=== PATIENT | female | born 1985 | race African-American/Black ===

== ENCOUNTER 2017-07-15 20:06 | Inpatient (IN) | payer MEDICARE, OTHER ==
[2017-07-15] MEDS ORDERED: LACTATED RINGER'S 1,000 ML IV (20:21)
[2017-07-15] MEDS ORDERED: OXYTOCIN 30 UNITS/LR 500 ML IV (20:30)
[2017-07-15] MEDS ORDERED: IBUPROFEN 600 MG TAB PO (20:30)
[2017-07-15] MEDS ORDERED: CARBOPROST 250 MCG INJ IM (20:30)
[2017-07-15] MEDS ORDERED: LIDOCAINE 1% (MPF) 30 ML INJ INJ (20:30)
[2017-07-15] MEDS ORDERED: MISOPROSTOL 200 MCG TAB PR (20:30)
[2017-07-15] MEDS ORDERED: LACTATED RINGER'S 500 ML IV (20:30)
[2017-07-15] MEDS ORDERED: METHYLERGONOVINE 0.2 MG INJ IM (20:30)
[2017-07-15] MEDS ORDERED: BUTORPHANOL 2 MG INJ IV (20:30)
[2017-07-15] MEDS: LACTATED RINGER'S 1,000 ML IV (21:16)
[2017-07-15 22:33] LABS: ADD MAN DIFF? NO
[2017-07-15 22:34] LABS: BASOPHILS % 0.2 % (0.0-2.0); EOSINOPHILS # 0.2 10^3/ul (0.0-0.5); EOSINOPHILS % 2.2 % (0.0-7.0); HEMOGLOBIN 10.2 g/dl (12.0-16.0); LYMPHOCYTES % 37.9 % (15.0-51.0); MEAN CORPUSCULAR HEMOGLOBIN 28.6 pg (29.0-33.0); MEAN CORPUSCULAR HGB CONC 32.9 g/dl (32.0-37.0); MEAN CORPUSCULAR VOLUME 86.8 fl (82.0-101.0); MEAN PLATELET VOLUME 10.8 fl (7.4-10.4); MONOCYTE # 0.5 10^3/ul (0.3-0.9); MONOCYTES % 6.7 % (0.0-11.0); NEUTROPHIL # 4.2 10^3/ul (1.6-7.5); NEUTROPHILS % 52.4 % (39.0-77.0); PLATELET COUNT 237 10^3/UL (140-415); RED BLOOD COUNT 3.57 10^6/ul (4.20-5.40); RED CELL DISTRIBUTION WIDTH 14.5 % (11.5-14.5)
[2017-07-15 22:49] LABS: INR 0.96; PROTIME 12.9 Sec (11.9-14.9)
[2017-07-15 22:50] LABS: PARTIAL THROMBOPLASTIN TIME 28.3 Sec (25.0-35.0)
[2017-07-15] MEDS: MISOPROSTOL 25 MCG CAPSULE PO (23:00)
[2017-07-15 23:30] LABS: HEPATITIS B SURFACE ANTIGEN NEGATIVE (NEGATIVE)
[2017-07-16] MEDS: LACTATED RINGER'S 1,000 ML IV ×3 (04:41→22:35)
[2017-07-16] MEDS: MISOPROSTOL 25 MCG CAPSULE PO ×6 (06:32→23:00)
[2017-07-16 15:43] LABS: RAPID PLASMA REAGIN NONREACTIVE (NR)
[2017-07-16] MEDS ORDERED: OXYCODONE/ACETAMINOPHEN (5/325) TAB PO (20:00)
[2017-07-17] MEDS: MISOPROSTOL 25 MCG CAPSULE PO ×2 (02:44→06:23)
[2017-07-17] MEDS: LACTATED RINGER'S 1,000 ML IV ×4 (06:23→17:18)
[2017-07-17] MEDS: OXYTOCIN 30 UNITS/LR 500 ML IV ×3 (11:49→18:36)
[2017-07-17] MEDS ORDERED: ONDANSETRON 4 MG INJ IV (12:30)
[2017-07-17] MEDS ORDERED: NALOXONE (0.4 MG/ML) INJ IV (12:30)
[2017-07-17] MEDS ORDERED: EPHEDrine SULFATE 50 MG/5 ML SYG IV (12:30)
[2017-07-17] MEDS ORDERED: FENTAnyl 2MCG/ML-ROPIV 0.2% 100 ML BAG EPI (12:30)
[2017-07-17] MEDS: DIPHENHYDRAMINE 50 MG INJ IV (14:31)
[2017-07-17] MEDS: LACTATED RINGER'S 1,000 ML IV* (20:31)
[2017-07-17] MEDS ORDERED: BENZOCAINE 20% 56 ML SPRAY TOP (21:00)
[2017-07-17] MEDS ORDERED: CARBOPROST 250 MCG INJ IM (21:00)
[2017-07-17] MEDS ORDERED: HYDROCODONE/APAP (5/325) TAB PO (21:00)
[2017-07-17] MEDS ORDERED: ACETAMINOPHEN 325 MG TAB PO (21:00)
[2017-07-17] MEDS ORDERED: MISOPROSTOL 200 MCG TAB PR (21:00)
[2017-07-17] MEDS ORDERED: OXYTOCIN 30 UNITS/LR 500 ML IV (21:00)
[2017-07-17] MEDS ORDERED: WITCH HAZEL/GLYCERIN PAD PR (21:00)
[2017-07-17] MEDS: SENNA/DOCUSATE NA (8.6MG/50MG) TAB PO (21:00)
[2017-07-17] MEDS ORDERED: DIBUCAINE 1% 30 GM OINT PR (21:00)
[2017-07-17] MEDS ORDERED: METHYLERGONOVINE 0.2 MG INJ IM (21:00)
[2017-07-18] MEDS: IBUPROFEN 600 MG TAB PO ×5 (06:00→18:59)
[2017-07-18 09:42] LABS: HEMATOCRIT 31.3 % (37.0-47.0); HEMOGLOBIN 10.6 g/dl (12.0-16.0); MEAN CORPUSCULAR HEMOGLOBIN 29.4 pg (29.0-33.0); MEAN CORPUSCULAR HGB CONC 33.9 g/dl (32.0-37.0); MEAN CORPUSCULAR VOLUME 86.9 fl (82.0-101.0); MEAN PLATELET VOLUME 10.7 fl (7.4-10.4); PLATELET COUNT 219 10^3/UL (140-415); RED CELL DISTRIBUTION WIDTH 14.8 % (11.5-14.5)
[2017-07-18 09:44] LABS: ADD MAN DIFF? YES; POSITIVE DIFF @See below
[2017-07-18 10:23] LABS: ANISOCYTOSIS 1+ (0-0); BAND NEUTROPHILS #M 0.3 10^3/ul (0.0-0.6); BAND NEUTROPHILS % (M) 2 % (0-4); EOSINOPHILS % (M) 3 % (0-7); GIANT THROMBO% (M) 1 % (0-0); LYMPHOCYTES #M 2.7 10^3/ul (0.8-2.9); LYMPHOCYTES % (M) 16 % (15-51); MICROCYTOSIS 1+ (0-0); MONOCYTE #M 0.5 10^3/ul (0.3-0.9); MONOCYTES % (M) 3 % (0-11); PLATELET ESTIMATE NORMAL; POLYCHROMASIA 3+ (0-0); REACTIVE LYMPHOCYTES #M 0.5 10^3/ul (0.0-0.0); REACTIVE LYMPHOCYTES% (M) 3 % (0-0); SEG NEUT #M 12.5 10^3/ul (1.7-7.5); SEGMENTED NEUTROPHILS (M) % 73 % (39-77); SMUDGE%M 4 % (0-0)
[2017-07-18] MEDS: SENNA/DOCUSATE NA (8.6MG/50MG) TAB PO ×2 (10:56→21:07)
[2017-07-19] MEDS: IBUPROFEN 600 MG TAB PO ×3 (05:36→12:07)
[2017-07-19 08:04] LABS: HEMATOCRIT 30.2 % (37.0-47.0); HEMOGLOBIN 10.2 g/dl (12.0-16.0); MEAN CORPUSCULAR HEMOGLOBIN 29.7 pg (29.0-33.0); MEAN CORPUSCULAR HGB CONC 33.8 g/dl (32.0-37.0); MEAN CORPUSCULAR VOLUME 87.8 fl (82.0-101.0); MEAN PLATELET VOLUME 10.9 fl (7.4-10.4); PLATELET COUNT 218 10^3/UL (140-415); RED BLOOD COUNT 3.44 10^6/ul (4.20-5.40); RED CELL DISTRIBUTION WIDTH 14.7 % (11.5-14.5)
[2017-07-19 08:04] LABS: WHITE BLOOD COUNT 10.5 10^3/ul (4.8-10.8)
[2017-07-19 08:10] LABS: ADD MAN DIFF? YES; POSITIVE DIFF @See below
[2017-07-19] MEDS: DIPHTH/TET/ACEL PERTUSS (ADULT) 0.5 ML VIAL IM* (09:00)
[2017-07-19 09:15] LABS: ANISOCYTOSIS 1+ (0-0); BAND NEUTROPHILS #M 0.2 10^3/ul (0.0-0.6); BAND NEUTROPHILS % (M) 2 % (0-4); EOSINOPHILS % (M) 2 % (0-7); LYMPHOCYTES #M 4.6 10^3/ul (0.8-2.9); LYMPHOCYTES % (M) 44 % (15-51); MICROCYTOSIS 1+ (0-0); MONOCYTE #M 0.3 10^3/ul (0.3-0.9); MONOCYTES % (M) 3 % (0-11); PLATELET ESTIMATE NORMAL; POLYCHROMASIA 1+ (0-0); REACTIVE LYMPHOCYTES #M 0.1 10^3/ul (0.0-0.0); REACTIVE LYMPHOCYTES% (M) 1 % (0-0); SEG NEUT #M 5.1 10^3/ul (1.7-7.5); SEGMENTED NEUTROPHILS (M) % 48 % (39-77); SMUDGE%M 1 % (0-0)
[2017-07-19] MEDS: SENNA/DOCUSATE NA (8.6MG/50MG) TAB PO (09:59)
== END 2017-07-19 15:25 | disposition home or self-care (01) | DRG 775 ==
LOC: PP1 07-17 20:50 → L-D 20:06
PROVIDERS: Obstetrics & Gynecology
PROC: 10E0XZZ Delivery of Products of Conception, External Approach (ICD-10-PCS; principal; 2017-07-17)
PROC: 3E033VJ Introduction of Other Hormone into Peripheral Vein, Percutaneous Approach (ICD-10-PCS; 2017-07-17)
DX: O48.0 Post-term pregnancy (principal); Z68.41 Body mass index [BMI] 40.0-44.9, adult; Z3A.40 40 weeks gestation of pregnancy; O99.214 Obesity complicating childbirth; E66.01 Morbid (severe) obesity due to excess calories; Z37.0 Single live birth
CPT/HCPCS: 62319; 76815; 85025; 85610; 85730; 86592; 86885; 86900; 86901; 87340; 90715; 99464